=== PATIENT | male | born 1950 | race African-American/Black ===

== ENCOUNTER 2017-08-21 11:42 | Emergency (ER) | payer OTHER ==
[~2017-08-21 11:42] MED LIST: ASAB PO; COREG6 PO; IMDUR30 PO; LOP25 PO; MEVACOR40 MG PO; PRILO PO; PRIN10 PO; PROAIR HFA INH; VITAMIN B-121000 MC1 SL; VITAMIN D31000 UNIT PO
== END 2017-08-21 14:38 | disposition home or self-care (01) ==
LOC: ER 11:42
DX: S22.31XA Fracture of one rib, right side, initial encounter for closed fracture (principal); I10 Essential (primary) hypertension; Z85.01 Personal history of malignant neoplasm of esophagus; Z79.82 Long term (current) use of aspirin; Z79.899 Other long term (current) drug therapy; W19.XXXA Unspecified fall, initial encounter
CPT/HCPCS: 71100-RT; 99283; A9270-GY